=== PATIENT | female | born 1960 | race Caucasian/White ===

== ENCOUNTER 2022-03-17 10:50 | Emergency (ER) | payer OTHER ==
[2022-03-17] MEDS ORDERED: Sodium Chloride 0.9% 10 ML Syringe FLUSH PRN (11:10)
[2022-03-17] MEDS ORDERED: Sodium Chloride 0.9% 1,000 ML IV ONE (11:11)
[2022-03-17] MEDS ORDERED: LORazepam 2 MG/ML SDV IVPUSH ONE (11:22)
[2022-03-17] MEDS ORDERED: Ketorolac 30 MG/ML SDV IVPUSH ONE (12:01)
[2022-03-17] MEDS ORDERED: Iopamidol 755 Mg/ML 75 ML Bottle IVPUSH ONE (12:15)
[2022-03-17] MEDS ORDERED: Sodium Chloride 0.9% 50 ML IV SCH (12:15)
[2022-03-17] MEDS ORDERED: Morphine 4 MG/ML Syringe IVPUSH ONE (12:40)
[2022-03-17 12:50] VITALS: BP 141/78; PULSE 87
== END 2022-03-17 13:11 | disposition home or self-care (01) ==
LOC: KA.ED 10:50
DX: K52.9 Noninfective gastroenteritis and colitis, unspecified (principal); C25.9 Malignant neoplasm of pancreas, unspecified; R63.0 Anorexia; E11.9 Type 2 diabetes mellitus without complications; E66.9 Obesity, unspecified; Z68.27 Body mass index [BMI] 27.0-27.9, adult; Z79.82 Long term (current) use of aspirin; Z79.84 Long term (current) use of oral hypoglycemic drugs; Z87.891 Personal history of nicotine dependence
CPT/HCPCS: 36415; 74177; 80053; 81001; 83690; 85025; 96361; 96374; 96375; 99284-25; J1642; J1885; J2060; J2270; J3490; J7030; Q9967

== ENCOUNTER 2022-04-12 07:10 | Emergency (ER) | payer OTHER ==
[2022-04-12] MEDS ORDERED: Sodium Chloride 0.9% 500 ML IV SCH ×2 (07:30→10:15)
[2022-04-12] MEDS: Sodium Chloride 0.9% 1,000 ML ONE ×2 (07:45→09:27)
[2022-04-12] MEDS ORDERED: Sodium Chloride 0.9% 1,000 ML IV ONE ×2 (07:45→09:30)
[2022-04-12 08:10] LABS: ANION GAP 18.7 mmol/L (5-15); CHLORIDE,CL 109 mmol/L (98-107); SODIUM,NA 143 mmol/L (136-145)
[2022-04-12 08:37] LABS: ESTIMATED GFR 101 mL/min (>=60)
[2022-04-12] MEDS ORDERED: D5 1/2 NS w/ 20 mEq/L KCl 1,000 ML IV SCH ×2 (08:45→11:00)
[2022-04-12] MEDS ORDERED: Potassium Chloride 20 MEQ in Premix Bag 1 BAG IV ONE (08:48)
[2022-04-12] MEDS ORDERED: HYDROmorphone 1 MG/ML Syringe IVPUSH ONE (09:19)
[2022-04-12] MEDS ORDERED: metroNIDAZOLE/Normal Saline 500 MG in Premix Bag 1 BAG IV ONE (10:55)
[2022-04-12] MEDS ORDERED: Cefepime 2 GM Vial IVPUSH ONE (10:55)
[2022-04-12 14:35] VITALS: BP 109/68; PULSE 97
== END 2022-04-12 11:40 ==
LOC: KA.ED 07:10
DX: K63.1 Perforation of intestine (nontraumatic) (principal); I71.02 Dissection of abdominal aorta; I71.01 Dissection of thoracic aorta; C25.9 Malignant neoplasm of pancreas, unspecified; C78.7 Secondary malignant neoplasm of liver and intrahepatic bile duct; I95.89 Other hypotension; I26.99 Other pulmonary embolism without acute cor pulmonale; R09.02 Hypoxemia; R18.8 Other ascites; E11.9 Type 2 diabetes mellitus without complications; E66.9 Obesity, unspecified; Z68.30 Body mass index [BMI] 30.0-30.9, adult; Z79.82 Long term (current) use of aspirin; Z79.84 Long term (current) use of oral hypoglycemic drugs; Z99.81 Dependence on supplemental oxygen; R00.0 Tachycardia, unspecified
CPT/HCPCS: 36415; 71045; 71275; 74177; 80053; 81001; 83605; 83690; 83735; 84484; 85025; 87040; 93005; 96361; 96365; 96366; 96368; 96375; 99284; 99285-25; J0692; J1170; J3480; J3490; J7030